=== PATIENT | male | born 1980 | race Caucasian/White ===

== ENCOUNTER 2017-08-19 08:55 | Emergency (ER) | payer OTHER ==
[~2017-08-19] VITALS: Ht 180.3 cm; Wt 68.0 kg
[2017-08-19 09:29] LABS: HEMATOCRIT 46.1 % (42.0-52.0); HEMOGLOBIN 15.7 gm/dL (14.0-18.0); MCH 31.3 pg (26.0-34.0); MCV 92.2 fL (80.0-100.0); MPV 6.2 fl. (7.2-11.1); RBC 5.01 mil/uL (4.50-6.00); RDW-CV 13.8 % (10.5-14.5)
[2017-08-19 09:36] LABS: CALCIUM 8.4 mg/dL (8.5-10.1); CREATININE 0.9 mg/dL (0.6-1.3); POTASSIUM 4.1 mmol/L (3.5-5.1)
[2017-08-19 09:41] LABS: ALBUMIN 3.6 g/dL (3.4-5.0); TOTAL BILIRUBIN 0.3 mg/dL (<0.1-1.0); TOTAL PROTEIN 7.1 g/dL (6.4-8.2)
[2017-08-19 09:43] LABS: ALCOHOL < 10 mg/dL (<10); SALICYLATE 3.7 mg/dL (2.8-20.0)
[2017-08-19 09:48] LABS: ACETAMINOPHEN < 2 ug/mL (10-30)
[2017-08-19 10:54] LABS: URINE BLOOD NEGATIVE (Negative); URINE CLARITY CLEAR; URINE COLOR YELLOW; URINE GLUCOSE-RANDOM NEGATIVE (Negative); URINE KETONES TRACE (Negative); URINE LEUKOCYTES NEGATIVE (Negative); URINE NITRITE NEGATIVE (Negative); URINE PROTEIN NEGATIVE (Negative); URINE SPECIFIC GRAVITY >= 1.030 (1.005-1.030); URINE UROBILINOGEN 0.2 E.U./dl (0.2-1.0)
[2017-08-19 10:58] LABS: ICTOTEST (BILI CONFIRMATORY) Negative (Negative); URINE BILIRUBIN 1+ (Negative)
[2017-08-19 11:01] LABS: AMP/METHAMP POSITIVE (Negative); BARBITURATES Negative (Negative); BENZODIAZEPINES Negative (Negative); COCAINE Negative (Negative); METHADONE Negative (Negative); OPIATES Negative (Negative); PCP Negative (Negative); THC POSITIVE (Negative)
[2017-08-19 11:22] VITALS: BP 128/80
== END 2017-08-19 11:26 | disposition home or self-care (01) ==
LOC: M.ERS 08:55
PROVIDERS: Personal Emergency Response Attendant
DX: F15.10 Other stimulant abuse, uncomplicated (principal); F14.10 Cocaine abuse, uncomplicated; F10.99 Alcohol use, unspecified with unspecified alcohol-induced disorder; F41.9 Anxiety disorder, unspecified